=== PATIENT | female | born 1965 | race Two or more races ===

== ENCOUNTER 2016-04-08 20:51 | Emergency (ER) | payer SELFPAY ==
[2016-04-08 21:00] VITALS: BP 160/91
[2016-04-08 22:02] LABS: Basophils # (auto) 0.1 uL; Basophils % (auto) 0.5 % (0.0-2.0); Eosinophils # (auto) 0.2 uL; Eosinophils % (auto) 1.5 % (0.0-7.0); Hematocrit 40.9 % (36.0-46.0); Hemoglobin 13.9 g/dL (12.2-16.2); Lymphocytes % (auto) 34.1 % (10.0-50.0); Mean Corpuscular Volume 88.3 fL (80.0-100.0); Mean Platelet Volume 8.3 fL (7.4-10.4); Monocytes # (auto) 0.6 uL; Monocytes % (auto) 5.3 % (0.0-12.0); Neutrophils # (auto) 6.9 uL; Neutrophils % (auto) 58.6 % (37.0-80.0); Platelet Count (auto) 364 10^3/uL (140-450); Red Cell Distribution Width 13.1 % (11.6-16.0); White Blood Cell 11.8 10^3/uL (4.4-10.8)
[2016-04-08 22:14] LABS: Calcium 9.2 mg/dL (8.5-10.1)
[2016-04-08 22:17] LABS: Bilirubin, Total 0.2 mg/dL (0.2-1.0); Total Protein 8.3 g/dL (6.4-8.2)
== END 2016-04-09 02:21 | disposition left against medical advice (07) ==
LOC: ER 20:53
DX: R51 Headache (principal); R42 Dizziness and giddiness; Z53.21 Procedure and treatment not carried out due to patient leaving prior to being seen by health care provider
CPT/HCPCS: 36415; 70450; 80053; 85025